=== PATIENT | female | born 1960 | race African-American/Black ===

== ENCOUNTER 2017-06-13 07:10 | Day surgery (SDC) | payer OTHER ==
[~2017-06-13] VITALS: Ht 165.1 cm; Wt 103.4 kg
[2017-06-13 08:15] VITALS: BP 147/77
[2017-06-13 11:53] VITALS: BP 143/72
== END 2017-06-13 12:15 | disposition home or self-care (01) ==
LOC: DS 07:10 → GI 11:30 → OR 11:30 → DS 12:15
PROVIDERS: Internal Medicine
PROC: 0DBL8ZX Excision of Transverse Colon, Via Natural or Artificial Opening Endoscopic, Diagnostic (ICD-10-PCS; 2017-06-13)
PROC: 0DBP8ZX Excision of Rectum, Via Natural or Artificial Opening Endoscopic, Diagnostic (ICD-10-PCS; 2017-06-13)
PROC: 0DBH8ZX Excision of Cecum, Via Natural or Artificial Opening Endoscopic, Diagnostic (ICD-10-PCS; principal; 2017-06-13 11:30)
DX: Z12.11 Encounter for screening for malignant neoplasm of colon (principal); K57.30 Diverticulosis of large intestine without perforation or abscess without bleeding; R19.7 Diarrhea, unspecified; E11.9 Type 2 diabetes mellitus without complications; I10 Essential (primary) hypertension; E78.5 Hyperlipidemia, unspecified; E66.9 Obesity, unspecified; Z68.36 Body mass index [BMI] 36.0-36.9, adult
CPT/HCPCS: 45378; J1610; J2250; J2310; J3010; J3490